=== PATIENT | female | born 1935 | race Native Hawaiian/Other Pacific Islander ===

== ENCOUNTER 2016-07-16 11:32 | Outpatient (CLI) | payer OTHER ==
[~2016-07-16 11:32] MED LIST: ALLEGRA ALRG180 M1 PO; ASPIRIN325 M1 PO; EZET10TA13 PO; FERROUS SULF325 M1 PO; FURO20TA67 PO; GABA300C2 PO; GLIP10TA55 PO; HYZAAR1 TA1 PO; HYZAAR1 TA2 PO; LEVO0.0218 PO; METF100038 PO; METF500T PO; MICRO-K10 MEQ PO; MOBIC7.5 M1 PO; MONT10TA PO; OMEPRAZOLE20 M1 PO; PLAVIX75 MG PO; POTA20TA4 PO; REQUIP1 MG PO; ROPI0.5T PO; SIMV10TA PO; TOPROL XL200 MG PO; TRAZ100T PO; VICTOZA18 MG/3 ML SC
[2016-07-16 12:00] LABS: POTASSIUM 4.9 mmol/L (3.6-5.2)
== END 2016-07-16 12:35 | disposition home or self-care (01) ==
LOC: LABW 11:32
PROVIDERS: Internal Medicine Cardiovascular Disease
DX: Z79.899 Other long term (current) drug therapy (principal); Z51.81 Encounter for therapeutic drug level monitoring
CPT/HCPCS: 36415; 80048

== ENCOUNTER 2016-08-31 06:50 | Outpatient (CLI) | payer OTHER ==
[2016-08-31] MEDS ORDERED: REQUIP1 MG PO (11:45)
[2016-08-31] MEDS ORDERED: GABA300C2 PO ×2 (11:51→11:53)
[2016-08-31] MEDS ORDERED: ASA LOW DOSE81 MG PO (17:01)
[2016-08-31] MEDS ORDERED: MOBIC15 MG PO (17:14)
[2016-08-31] MEDS ORDERED: DIOVAN HCT320 MG/25 PO (17:31)
[2016-08-31] MEDS ORDERED: OMEP20CA PO (17:37)
[2016-08-31] MEDS ORDERED: ISOSORB DIN30 MG PO (17:40)
== END 2016-08-31 07:00 | disposition short-term general hospital (02) ==
LOC: AMB 06:50
DX: R06.09 Other forms of dyspnea (principal); R11.2 Nausea with vomiting, unspecified; I50.9 Heart failure, unspecified
CPT/HCPCS: A0425; A0427

== ENCOUNTER 2016-10-14 09:48 | Outpatient (CLI) | payer OTHER ==
[~2016-10-14 09:48] MED LIST changes: +ASA LOW DOSE81 MG PO; +DIOVAN HCT320 MG/25 PO; +ISOSORB DIN30 MG PO; +MOBIC15 MG PO; +OMEP20CA PO
== END 2016-10-14 19:01 | disposition home or self-care (01) ==
LOC: LABW 09:48
PROVIDERS: Internal Medicine Cardiovascular Disease
DX: E78.4 Other hyperlipidemia (principal)
CPT/HCPCS: 36415; 80061

== ENCOUNTER 2016-12-17 09:22 | Outpatient (CLI) | payer OTHER ==
[2016-12-17 09:55] LABS: POTASSIUM 4.8 mmol/L (3.6-5.2)
== END 2016-12-17 18:56 | disposition home or self-care (01) ==
LOC: LABW 09:22
PROVIDERS: Internal Medicine Cardiovascular Disease
DX: Z79.899 Other long term (current) drug therapy (principal); R06.09 Other forms of dyspnea; Z51.81 Encounter for therapeutic drug level monitoring
CPT/HCPCS: 36415; 80048; 83880

== ENCOUNTER 2017-07-20 12:54 | Outpatient (CLI) | payer OTHER ==
[2017-07-21] MEDS ORDERED: FURO40TA93 PO (06:20)
[2017-07-21] MEDS ORDERED: MECLIZINE25 MG (06:23)
[2017-07-21] MEDS ORDERED: MOBIC7.5 M1 PO (06:23)
[2017-07-21] MEDS ORDERED: ISOS30TA17 PO (06:25)
[2017-07-21] MEDS ORDERED: CENTRUM SILVE1 (06:27)
[2017-07-21] MEDS ORDERED: METF500T PO (06:28)
[2017-07-21] MEDS ORDERED: REQUIP XL2 MG OR (06:29)
== END 2017-07-20 13:04 | disposition short-term general hospital (02) ==
LOC: AMB 12:54
DX: R53.1 Weakness (principal); W18.39XA Other fall on same level, initial encounter; R29.6 Repeated falls
CPT/HCPCS: A0425; A0427

== ENCOUNTER 2017-07-20 13:04 | Inpatient (IN) | payer OTHER ==
[~2017-07-20] VITALS: Ht 160 cm; Wt 104.8 kg
[2017-07-20] VITALS (7 sets, daily range): BP systolic 99–175; BP diastolic 67–99; TEMP 97.2–99.5; Ht 160 cm; Wt 104.8 kg
[2017-07-20 14:37] LABS: PLATELET COUNT 304 K/uL (152-353)
[2017-07-20 14:42] LABS: POTASSIUM 4.6 mmol/L (3.6-5.2)
[2017-07-21] VITALS: BP 124/70; TEMP 98.8
[2017-07-21 04:00] VITALS: BP 135/72; TEMP 98.6
[2017-07-21] MEDS ORDERED: FURO40TA93 PO (06:20)
[2017-07-21] MEDS ORDERED: MECLIZINE25 MG (06:23)
[2017-07-21] MEDS ORDERED: MOBIC7.5 M1 PO (06:23)
[2017-07-21] MEDS ORDERED: ISOS30TA17 PO (06:25)
[2017-07-21] MEDS ORDERED: CENTRUM SILVE1 (06:27)
[2017-07-21] MEDS ORDERED: METF500T PO (06:28)
[2017-07-21] MEDS ORDERED: REQUIP XL2 MG OR (06:29)
[2017-07-21 08:21] VITALS: BP 165/83; TEMP 98
[2017-07-21 11:50] LABS: PLATELET COUNT 233 K/uL (152-353)
[2017-07-21 12:00] VITALS: BP 186/91; TEMP 98.3
[2017-07-21 12:46] LABS: POTASSIUM 4.2 mmol/L (3.6-5.2)
[2017-07-21 16:00] VITALS: BP 147/69; TEMP 99
[2017-07-21 20:00] VITALS: BP 130/58; TEMP 99
[2017-07-22] VITALS: BP 139/71; TEMP 98.4
[2017-07-22 04:00] VITALS: BP 139/70; TEMP 97.7
[2017-07-22 05:41] LABS: PLATELET COUNT 203 K/uL (152-353)
[2017-07-22 06:10] LABS: POTASSIUM 4.4 mmol/L (3.6-5.2)
[2017-07-22 08:00] VITALS: BP 150/75; TEMP 98.3
[2017-07-22 12:00] VITALS: BP 138/84; TEMP 98
[2017-07-22 16:00] VITALS: BP 173/84; TEMP 98.6
[2017-07-22 20:26] VITALS: BP 181/82; TEMP 97.7
[2017-07-23] VITALS: BP 138/60; TEMP 97.4
[2017-07-23 04:00] VITALS: BP 135/56; TEMP 97.6
[2017-07-23 05:29] LABS: PLATELET COUNT 191 K/uL (152-353)
[2017-07-23 05:38] LABS: POTASSIUM 4.3 mmol/L (3.6-5.2)
[2017-07-23 08:00] VITALS: BP 152/61; TEMP 98.3
[2017-07-23] MEDS ORDERED: NITR100C56 PO (10:30)
== END 2017-07-23 13:25 | disposition swing bed (61) | DRG 194 ==
LOC: ED 13:04 → MED/SURG 15:25
PROC: 05HM33Z Insertion of Infusion Device into Right Internal Jugular Vein, Percutaneous Approach (ICD-10-PCS; principal; 2017-07-21)
PROC: B543ZZA Ultrasonography of Right Jugular Veins, Guidance (ICD-10-PCS; 2017-07-21)
DX: J18.8 Other pneumonia, unspecified organism (principal); N39.0 Urinary tract infection, site not specified; E87.1 Hypo-osmolality and hyponatremia; R17 Unspecified jaundice; I87.8 Other specified disorders of veins; I95.89 Other hypotension; R31.9 Hematuria, unspecified; E11.9 Type 2 diabetes mellitus without complications; D72.828 Other elevated white blood cell count; E83.42 Hypomagnesemia; B99.8 Other infectious disease
CPT/HCPCS: 36415; 51702; 80053; 81000; 82550; 82553; 82948; 83690; 83735; 83874; 83880; 85027; 85379; 87040; 87077; 87086; 87088; 87186; 93005; 94640; 94664; 94760; 96361; 96372; 96374; 99284; C1768; J1956; J2405

== ENCOUNTER 2017-07-23 11:30 | Inpatient (IN) | payer OTHER ==
[~2017-07-23] VITALS: Ht 160 cm; Wt 100.2 kg
[~2017-07-23 11:30] MED LIST changes: +CENTRUM SILVE1; +FURO40TA93 PO; +ISOS30TA17 PO; +MECLIZINE25 MG; +NITR100C56 PO; +REQUIP XL2 MG OR
[2017-07-23 14:00] VITALS: BP 158/60; TEMP 98; Ht 160 cm; Wt 100.2 kg
[2017-07-24 08:00] VITALS: BP 129/57; TEMP 98.8
[2017-07-24 20:00] VITALS: BP 195/83; TEMP 98.1
[2017-07-25 08:00] VITALS: BP 188/81; TEMP 98
[2017-07-25 20:00] VITALS: BP 166/22; TEMP 98.2
[2017-07-26 08:00] VITALS: BP 170/77; TEMP 98
[2017-07-26 19:47] VITALS: BP 140/56; TEMP 98.3
[2017-07-27 07:58] VITALS: BP 154/52; TEMP 98.3
[2017-07-27 08:02] LABS: POTASSIUM 4.2 mmol/L (3.6-5.2)
[2017-07-27 08:26] LABS: PLATELET COUNT 266 K/uL (152-353)
[2017-07-27 20:00] VITALS: BP 178/73; TEMP 98
[2017-07-28 08:00] VITALS: BP 136/54; TEMP 98.1
[2017-07-28 20:00] VITALS: BP 145/55; TEMP 98.5
[2017-07-29 07:49] VITALS: BP 174/76; TEMP 97.6
[2017-07-29 20:00] VITALS: BP 141/52; TEMP 98.1
[2017-07-30 08:00] VITALS: BP 135/61; TEMP 98
[2017-07-30 20:00] VITALS: BP 179/79; TEMP 98.2
[2017-07-31 08:00] VITALS: BP 150/67; TEMP 97.9
[2017-07-31 12:45] LABS: POTASSIUM 5.4 mmol/L (3.6-5.2)
[2017-07-31 20:00] VITALS: BP 144/70; TEMP 97.9
[2017-08-01 05:45] LABS: POTASSIUM 4.9 mmol/L (3.6-5.2)
[2017-08-01 08:26] VITALS: BP 196/76; TEMP 97.8
[2017-08-01 20:00] VITALS: BP 162/58; TEMP 98
[2017-08-02 08:00] VITALS: BP 154/69; TEMP 97.8
[2017-08-02 20:00] VITALS: BP 150/75; TEMP 97.6
[2017-08-03 05:39] LABS: PLATELET COUNT 325 K/uL (152-353)
[2017-08-03 05:54] LABS: POTASSIUM 4.9 mmol/L (3.6-5.2)
[2017-08-03 08:00] VITALS: BP 131/68; TEMP 98
[2017-08-03 20:00] VITALS: BP 170/75; TEMP 97.6
[2017-08-04 05:56] LABS: POTASSIUM 4.9 mmol/L (3.6-5.2)
[2017-08-04 08:00] VITALS: BP 145/67; TEMP 97.9
== END 2017-08-04 11:27 | disposition home or self-care (01) | DRG 556 ==
LOC: MED/SURG 11:30
PROVIDERS: Internal Medicine
DX: M62.81 Muscle weakness (generalized) (principal); I10 Essential (primary) hypertension; M15.9 Polyosteoarthritis, unspecified; E11.9 Type 2 diabetes mellitus without complications; R54 Age-related physical debility; K21.9 Gastro-esophageal reflux disease without esophagitis; I50.9 Heart failure, unspecified
CPT/HCPCS: 80053; 81000; 82550; 83735; 84484; 85007; 85027; 93005

== ENCOUNTER 2017-08-31 09:14 | Outpatient (CLI) | payer OTHER | END 2017-08-31 09:24 | disposition short-term general hospital (02) | LOC: AMB 09:14 | DX: M25.579 Pain in unspecified ankle and joints of unspecified foot (principal) | CPT/HCPCS: A0425; A0429 ==

== ENCOUNTER 2017-08-31 09:30 | Inpatient (IN) | payer OTHER ==
[~2017-08-31] VITALS: Ht 160 cm; Wt 102.3 kg
[2017-08-31 09:25] VITALS: BP 147/90; TEMP 97.5
[2017-08-31 09:53] LABS: PLATELET COUNT 299 K/uL (152-353)
[2017-08-31 10:03] LABS: POTASSIUM 4.6 mmol/L (3.6-5.2)
[2017-08-31 17:28] VITALS: BP 163/70; TEMP 98.2
[2017-08-31 17:31] VITALS: BP 175/77; TEMP 97.7; Ht 160 cm; Wt 102.3 kg
[2017-08-31 20:00] VITALS: BP 143/56; TEMP 98.2
[2017-09-01] VITALS: BP 134/56; TEMP 97.8
[2017-09-01 04:00] VITALS: BP 131/60; TEMP 98.4
[2017-09-01 05:34] LABS: PLATELET COUNT 264 K/uL (152-353)
[2017-09-01 06:02] LABS: POTASSIUM 4.1 mmol/L (3.6-5.2)
[2017-09-01 08:00] VITALS: BP 108/56; TEMP 97.9
[2017-09-01 12:00] VITALS: BP 146/66; TEMP 97.6
[2017-09-01 16:00] VITALS: BP 166/76; TEMP 97.3
[2017-09-01 20:00] VITALS: BP 167/71; TEMP 97.8
[2017-09-02] VITALS: BP 159/62; TEMP 98.7
[2017-09-02 04:00] VITALS: BP 170/78; TEMP 97.9
[2017-09-02 08:00] VITALS: BP 178/78; TEMP 98.1
[2017-09-02 08:43] LABS: PLATELET COUNT 316 K/uL (152-353)
[2017-09-02 08:50] LABS: POTASSIUM 4.6 mmol/L (3.6-5.2)
[2017-09-02 12:00] VITALS: BP 178/80; TEMP 98
[2017-09-02 16:00] VITALS: BP 167/72; TEMP 97.6
[2017-09-02 20:00] VITALS: BP 196/87; TEMP 98
[2017-09-03] VITALS: BP 165/71; TEMP 98.4
[2017-09-03 04:00] VITALS: BP 147/62; TEMP 98.2
[2017-09-03 05:07] LABS: PLATELET COUNT 307 K/uL (152-353)
[2017-09-03 05:19] LABS: POTASSIUM 4.7 mmol/L (3.6-5.2)
[2017-09-03 07:49] VITALS: BP 158/82; TEMP 98.3
[2017-09-03] MEDS ORDERED: NITR100C56 PO (10:54)
[2017-09-03] MEDS ORDERED: COLC0.6T6 PO (10:54)
[2017-09-03] MEDS ORDERED: ALLO100T22 PO ×2 (10:54→10:55)
[2017-09-03] MEDS ORDERED: METO100T37 PO (10:55)
[2017-09-03] MEDS ORDERED: ONDA4TAB3 PO (10:57)
== END 2017-09-03 13:15 | disposition home or self-care (01) | DRG 554 ==
LOC: ED 09:30 → MED/SURG 11:30
PROVIDERS: ADMIT Family Medicine
DX: M10.9 Gout, unspecified (principal); N39.0 Urinary tract infection, site not specified; I12.0 Hypertensive chronic kidney disease with stage 5 chronic kidney disease or end stage renal disease; N18.5 Chronic kidney disease, stage 5; M79.7 Fibromyalgia; E78.4 Other hyperlipidemia; I25.2 Old myocardial infarction; E11.22 Type 2 diabetes mellitus with diabetic chronic kidney disease; E86.0 Dehydration
CPT/HCPCS: 36415; 36591; 80053; 81000; 82948; 84550; 85027; 87077; 87086; 87088; 87186; 96360; 96361; 96372; 96374; 96375; 99283; J1956; J1644; J1815; J1885; J2405; J3490

== ENCOUNTER 2017-09-10 09:30 | Inpatient (IN) | payer OTHER ==
[2017-09-10] VITALS (7 sets, daily range): BP systolic 149–183; BP diastolic 72–93; TEMP 97.9–98.8; Ht 160 cm; Wt 99.5 kg
[~2017-09-10] VITALS: Ht 160 cm; Wt 99.5 kg
[~2017-09-10 09:30] MED LIST changes: +ALLO100T22 PO; +COLC0.6T6 PO; +METO100T37 PO; +ONDA4TAB3 PO
[2017-09-10 10:45] LABS: PLATELET COUNT 401 K/uL (152-353)
[2017-09-11 00:28] VITALS: BP 150/66; TEMP 98
[2017-09-11 04:13] VITALS: BP 139/69; TEMP 98.2
[2017-09-11 08:05] VITALS: BP 153/77; TEMP 97.7
[2017-09-11 12:06] VITALS: BP 180/96; TEMP 97.7
[2017-09-11 16:07] VITALS: BP 189/97; TEMP 97.7
[2017-09-11 17:05] LABS: PLATELET COUNT 325 K/uL (152-353)
[2017-09-11 17:08] LABS: POTASSIUM 4.4 mmol/L (3.6-5.2)
[2017-09-11 20:25] VITALS: BP 177/90; TEMP 98.7
[2017-09-12] VITALS: BP 142/73; TEMP 98.7
[2017-09-12 04:00] VITALS: BP 147/66; TEMP 97.6
[2017-09-12 05:48] LABS: POTASSIUM 4.4 mmol/L (3.6-5.2)
[2017-09-12 06:45] LABS: PLATELET COUNT 329 K/uL (152-353)
[2017-09-12 08:13] VITALS: BP 147/54; TEMP 98
[2017-09-12 11:58] LABS: PARTIAL THROMBOPLASTIN TIME 26.3 SECONDS (24.5-33.6)
[2017-09-12 12:06] VITALS: BP 115/70; TEMP 97.5
== END 2017-09-12 13:20 | disposition short-term general hospital (02) | DRG 392 ==
LOC: ED 09:32 → MED/SURG 11:11
PROVIDERS: Emergency Medicine
DX: K57.90 Diverticulosis of intestine, part unspecified, without perforation or abscess without bleeding (principal); E87.1 Hypo-osmolality and hyponatremia; N39.0 Urinary tract infection, site not specified; I82.409 Acute embolism and thrombosis of unspecified deep veins of unspecified lower extremity; K62.5 Hemorrhage of anus and rectum; I13.0 Hypertensive heart and chronic kidney disease with heart failure and stage 1 through stage 4 chronic kidney disease, or unspecified chronic kidney disease; E80.6 Other disorders of bilirubin metabolism; R74.8 Abnormal levels of other serum enzymes; E86.0 Dehydration; D72.828 Other elevated white blood cell count; I25.10 Atherosclerotic heart disease of native coronary artery without angina pectoris; I10 Essential (primary) hypertension; K21.9 Gastro-esophageal reflux disease without esophagitis; E83.42 Hypomagnesemia; E11.22 Type 2 diabetes mellitus with diabetic chronic kidney disease; N18.3 Chronic kidney disease, stage 3 (moderate)
CPT/HCPCS: 36415; 80053; 80061; 80074; 81000; 82150; 82247; 82248; 82272; 82948; 83690; 83735; 83880; 85027; 85610; 85730; 86140; 87040; 87088; 93005; 96372; 99284; J0696; J1815; J1940; J2405; J3475; J3490

== ENCOUNTER 2017-09-12 13:00 | Outpatient (CLI) | payer OTHER | END 2017-09-12 13:01 | disposition short-term general hospital (02) | LOC: AMB 13:00 | DX: I13.0 Hypertensive heart and chronic kidney disease with heart failure and stage 1 through stage 4 chronic kidney disease, or unspecified chronic kidney disease (principal); E87.1 Hypo-osmolality and hyponatremia; N39.0 Urinary tract infection, site not specified; I82.409 Acute embolism and thrombosis of unspecified deep veins of unspecified lower extremity; K62.5 Hemorrhage of anus and rectum; E80.6 Other disorders of bilirubin metabolism; R74.8 Abnormal levels of other serum enzymes; E86.0 Dehydration; D72.828 Other elevated white blood cell count; I25.10 Atherosclerotic heart disease of native coronary artery without angina pectoris; I10 Essential (primary) hypertension; K21.9 Gastro-esophageal reflux disease without esophagitis; E83.42 Hypomagnesemia; E11.22 Type 2 diabetes mellitus with diabetic chronic kidney disease; N18.3 Chronic kidney disease, stage 3 (moderate) | CPT/HCPCS: A0425; A0429 ==

== ENCOUNTER 2017-10-02 14:54 | Outpatient (CLI) | payer OTHER | END 2017-10-02 15:22 | disposition short-term general hospital (02) | LOC: AMB 14:54 | DX: R41.0 Disorientation, unspecified (principal); S00.81XA Abrasion of other part of head, initial encounter; W17.89XA Other fall from one level to another, initial encounter; Y92.012 Bathroom of single-family (private) house as the place of occurrence of the external cause | CPT/HCPCS: A0425; A0427 ==

== ENCOUNTER 2017-10-02 15:23 | Inpatient (IN) | payer OTHER ==
[~2017-10-02] VITALS: Ht 160 cm; Wt 98.7 kg
[2017-10-02 15:29] VITALS: BP 172/73; TEMP 98.7
[2017-10-02 15:52] LABS: POTASSIUM 4.7 mmol/L (3.6-5.2); SODIUM 136 mmol/L (136-145)
[2017-10-02 15:53] LABS: PLATELET COUNT 345 K/uL (152-353)
[2017-10-02 15:59] LABS: PARTIAL THROMBOPLASTIN TIME 24.7 SECONDS (24.5-33.6)
[2017-10-02 16:15] VITALS: TEMP 101.5
[2017-10-02 21:46] VITALS: BP 112/52; TEMP 98.1
[2017-10-03 02:52] VITALS: BP 100/60; TEMP 98.1; Ht 160 cm; Wt 98.7 kg
[2017-10-03 04:00] VITALS: BP 112/46; TEMP 97.5
[2017-10-03 07:13] LABS: PLATELET COUNT 292 K/uL (152-353)
[2017-10-03 11:41] VITALS: BP 121/53; TEMP 98.6
[2017-10-03 20:00] VITALS: BP 128/55; TEMP 98.7
[2017-10-04] VITALS: BP 143/54; TEMP 98.5
[2017-10-04 03:59] VITALS: BP 116/44; TEMP 98.3
[2017-10-04 07:38] LABS: PLATELET COUNT 275 K/uL (152-353)
[2017-10-04 07:58] LABS: POTASSIUM 4.1 mmol/L (3.6-5.2)
[2017-10-04 08:00] VITALS: BP 142/57; TEMP 98.28
[2017-10-04 12:00] VITALS: BP 113/57; TEMP 98.5
[2017-10-04 16:00] VITALS: BP 165/73; TEMP 98.4
[2017-10-04 20:00] VITALS: BP 132/60; TEMP 98.7
[2017-10-05] VITALS: BP 120/54; TEMP 98.1
[2017-10-05 04:00] VITALS: BP 125/62; TEMP 98.6
[2017-10-05 05:33] LABS: PLATELET COUNT 271 K/uL (152-353)
[2017-10-05 05:50] LABS: POTASSIUM 3.7 mmol/L (3.6-5.2)
[2017-10-05 08:00] VITALS: BP 153/78; TEMP 97.7
[2017-10-05] MEDS ORDERED: LEVO250T2 PO (09:30)
== END 2017-10-05 10:30 | disposition home or self-care (01) | DRG 871 ==
LOC: ED 15:23 → MED/SURG 21:30
PROVIDERS: Family Medicine; ADMIT Family Medicine
DX: A41.89 Other specified sepsis (principal); J18.8 Other pneumonia, unspecified organism; I50.33 Acute on chronic diastolic (congestive) heart failure; N39.0 Urinary tract infection, site not specified; I10 Essential (primary) hypertension; E11.9 Type 2 diabetes mellitus without complications; M79.7 Fibromyalgia; I25.10 Atherosclerotic heart disease of native coronary artery without angina pectoris; I25.2 Old myocardial infarction; E78.4 Other hyperlipidemia; F41.8 Other specified anxiety disorders
CPT/HCPCS: 36415; 51702; 80053; 80200; 81000; 83605; 84484; 85027; 85610; 85730; 87040; 87077; 87185; 87205; 93005; 94640; 94664; 94760; 96361; 96365; 99285; J1956; J2543; J3260; J3370

== ENCOUNTER 2017-10-09 14:25 | Outpatient (CLI) | payer OTHER ==
[~2017-10-09 14:25] MED LIST changes: +LEVO250T2 PO
== END 2017-10-09 19:27 | disposition home or self-care (01) ==
LOC: LAB 14:25
DX: R74.8 Abnormal levels of other serum enzymes (principal)
CPT/HCPCS: 36415; 80076

== ENCOUNTER 2017-10-15 11:27 | Outpatient (CLI) | payer OTHER | END 2017-10-15 23:22 | disposition home or self-care (01) | LOC: LAB 11:27 | DX: N39.0 Urinary tract infection, site not specified (principal) | CPT/HCPCS: 81000 ==

== ENCOUNTER 2017-10-27 10:33 | Outpatient (CLI) | payer OTHER | END 2017-10-27 22:28 | disposition home or self-care (01) | LOC: LAB 10:33 | DX: Z87.440 Personal history of urinary (tract) infections (principal); N39.0 Urinary tract infection, site not specified | CPT/HCPCS: 81000; 87077; 87086; 87088; 87186 ==

== ENCOUNTER 2017-11-04 11:00 | Inpatient (IN) | payer OTHER ==
[~2017-11-04] VITALS: Ht 160 cm; Wt 94.0 kg
[2017-11-04 17:15] VITALS: BP 190/84; TEMP 98.1; Ht 160 cm; Wt 94.0 kg
[2017-11-04 20:00] VITALS: BP 154/88; TEMP 98.2
[2017-11-05 08:00] VITALS: BP 173/81; TEMP 97.7
[2017-11-05 20:00] VITALS: BP 176/72; TEMP 98.4
[2017-11-06 08:19] VITALS: BP 168/70; TEMP 97.7
[2017-11-06 20:28] VITALS: BP 170/90; TEMP 98.6
[2017-11-07 20:00] VITALS: BP 158/73; TEMP 98.3
[2017-11-08 20:05] VITALS: BP 133/64; TEMP 98.9
[2017-11-10 20:00] VITALS: BP 140/65; TEMP 97.8
[2017-11-11 05:41] LABS: PLATELET COUNT 370 K/uL (152-353)
[2017-11-11 06:10] LABS: POTASSIUM 4.9 mmol/L (3.6-5.2)
[2017-11-11 20:32] VITALS: BP 153/70; TEMP 98
[2017-11-12 20:16] VITALS: BP 162/78; TEMP 97.9
[2017-11-13 08:23] VITALS: BP 163/83; TEMP 98.6
[2017-11-13 19:37] VITALS: BP 138/70; TEMP 98.2
[2017-11-14 08:22] VITALS: BP 197/94; TEMP 98
[2017-11-14 20:07] VITALS: BP 162/96; TEMP 98.1
[2017-11-15 20:00] VITALS: BP 143/74; TEMP 97.9
[2017-11-16 20:39] VITALS: BP 156/81; TEMP 97.8
[2017-11-17 21:27] VITALS: BP 180/63; TEMP 98
[2017-11-18 04:53] LABS: PLATELET COUNT 315 K/uL (152-353)
[2017-11-18 05:31] LABS: POTASSIUM 4.9 mmol/L (3.6-5.2)
== END 2017-11-18 13:52 | disposition home or self-care (01) | DRG 556 ==
LOC: MED/SURG 11:00
PROVIDERS: Emergency Medicine; ADMIT Internal Medicine
DX: M62.81 Muscle weakness (generalized) (principal); N17.8 Other acute kidney failure; I25.2 Old myocardial infarction; N18.9 Chronic kidney disease, unspecified
CPT/HCPCS: 36415; 80053; 81000; 83880; 85027; 94760

== ENCOUNTER 2017-11-13 10:28 | Outpatient (CLI) | payer OTHER | END 2017-11-13 19:34 | disposition home or self-care (01) | LOC: CT 10:28 | DX: R91.8 Other nonspecific abnormal finding of lung field (principal) ==

== ENCOUNTER 2017-11-24 13:37 | Outpatient (CLI) | payer OTHER | END 2017-11-24 22:35 | disposition home or self-care (01) | LOC: LAB 13:37 | DX: Z87.440 Personal history of urinary (tract) infections (principal); R82.90 Unspecified abnormal findings in urine | CPT/HCPCS: 81000; 87077; 87086; 87088; 87186 ==